=== PATIENT | female | born 1975 | race Caucasian/White ===

== ENCOUNTER 2018-12-23 08:58 | Emergency (ER) | payer OTHER ==
[~2018-12-23] VITALS: Ht 157.5 cm; Wt 68.0 kg
[2018-12-23 09:08] VITALS: BP 141/70
--- NOTE | 2018-12-23 09:22 | PHYS DOC ---
Adult General Chief Complaint Chief Complaint: RIB PAIN HPI HPI Patient is a 43 year old female who presents to the emergency Department today with complaints of left-sided rib pain with a cough for the last 3 days. She denies any known injury. Pt she also has some chest tightness. She reports a history of COPD and asthma. Patient currently rates her pain as 7 out of 10 on the pain scale, there are no alleviating or exacerbating factors ROS Patient denies any fever, nasal congestion, sore throat, ear pain, abdominal pain, nausea, vomiting, diarrhea, back pain, palpitations, or chest pain. All other ROS is neg unless otherwise noted in HPI. Review of Systems Review of Systems See Above Current Medications Current Medications Current Medications Medications (Trade) Dose Ordered Sig/Chad Start Time Stop Time Status Last Admin Dose Admin Albuterol Sulfate (Ventolin Neb Soln) 2.5 mg 1X ONCE 12/23/18 09:45 12/23/18 09:46 DC 12/23/18 09:44 2.5 MG Dexamethasone (Decadron) 10 mg 1X ONCE 12/23/18 09:45 12/23/18 09:46 DC 12/23/18 09:34 10 MG Allergies Allergies Allergies Coded Allergies Type Severity Reaction Last Updated Verified No Known Drug Allergies 12/23/18 No Physical Exam Physical Exam See Above Constitutional: Well developed, well nourished, no acute distress, non-toxic appearance. [] HENT: Normocephalic, atraumatic, bilateral external ears normal, oropharynx moist, no oral exudates, nose normal. [] Eyes: PERRLA, EOMI, conjunctiva normal, no discharge. [] Neck: Normal range of motion, no stridor. [] Cardiovascular:Heart rate regular rhythm, no murmur [] Lungs & Thorax: Bilateral breath sounds clear to auscultation, Respirations even and unlabored, no retractions, no respiratory distress; left lateral rib tenderness to palpation, no crepitus [] Skin: Warm, dry, no erythema, no rash. [] Extremities: No cyanosis, no clubbing, ROM intact, no edema. [] Neurologic: Alert and oriented X 3, no focal deficits noted. [] Psychologic: Affect normal, judgement normal, mood normal. [] Current Patient Data Vital Signs Vital Signs Date Time Temp Pulse Resp B/P (MAP) Pulse Ox O2 Delivery O2 Flow Rate FiO2 12/23/18 09:47 98 Room Air 12/23/18 09:08 97.4 90 18 141/70 (93) 97.4 EKG EKG [] Radiology/Procedures Radiology/Procedures PROCEDURE: RIBS LEFT AND PA CHEST Examination: RIBS LEFT AND PA CHEST History: COPD, left rib pain with coughing Comparison/Correlation: None Findings: PA view chest and 4 additional images of the left ribs were provided. Heart size and pulmonary vasculature are normal. No infiltrate or pleural effusion. No pneumothorax. Bony structures are grossly unremarkable with no left rib fracture identified. Right upper quadrant surgical clips are present. Impression: No left rib fracture. No infiltrate. Unremarkable exam.[] Course & Med Decision Making Course & Med Decision Making Pertinent Labs and Imaging studies reviewed. (See chart for details) dx: cough with rib pain CXR negative for any acute findings. Pt was given a breathing tx in the ER and 10 mg of PO decadron. Continue using your inhaler as needed. Prescription written for naproxen. Follow up with PCP if sx persist, return to ER if sx worsen. Patient verbalized an understanding of home care, medications, follow-up, and return to ED instructions and was in agreement with the plan of care. [] Dragon Disclaimer Dragon Disclaimer This electronic medical record was generated, in whole or in part, using a voice recognition dictation system. Departure Departure Impression: Primary Impression: Cough in adult patient Additional Impression: Rib pain on left side Disposition: 01 HOME, SELF-CARE Condition: STABLE Referrals: UNKNOWN PCP NAME (PCP) Patient Instructions: Cough, Adult, [id number] Additional Instructions: Fill prescription(s) and use as directed, continue using your inhaler as needed. Increase clear fluids. Avoid triggers such as smoke, fragrance, dust, and pollen. May take [id number] cough suppressants as needed. Follow-up with your primary care doctor if symptoms persist, return to the ER if symptoms worsen. Scripts Naproxen (NAPROXEN) 500 Mg Tablet 1 TAB PO BID for 10 Days, #20 TAB 0 Refills Prov: HUDSON CLINE APRN 12/23/18 Problem Qualifiers HUDSON CLINE APRN Dec 23, 2018 09:22
[2018-12-23] MEDS ORDERED: DEXAMETHASONE 4 MG TABLET PO ONE (09:45)
[2018-12-23] MEDS ORDERED: ALBUTEROL SULFATE 2.5 MG/3 ML NEBU. NEB ONE (09:45)
--- NOTE | 2018-12-23 10:03 | RAD ---
Examination: RIBS LEFT AND PA CHEST History: COPD, left rib pain with coughing Comparison/Correlation: None Findings: PA view chest and 4 additional images of the left ribs were provided. Heart size and pulmonary vasculature are normal. No infiltrate or pleural effusion. No pneumothorax. Bony structures are grossly unremarkable with no left rib fracture identified. Right upper quadrant surgical clips are present. Impression: No left rib fracture. No infiltrate. Unremarkable exam. Electronically signed by: Matheus Fuentes MD (12/23/2018 10:00 AM) [facility]
[2018-12-23] MEDS ORDERED: NAPR-514 PO (10:19)
== END 2018-12-23 10:28 | disposition home or self-care (01) ==
LOC: ER 08:58
DX: R07.81 Pleurodynia (principal); R05 Cough; J44.9 Chronic obstructive pulmonary disease, unspecified
CPT/HCPCS: 71101; 94640; 99284; J7613; J8540